=== PATIENT | male | born 1990 | race Caucasian/White ===

== ENCOUNTER 2017-02-25 18:35 | Emergency (ER) | payer MEDICAID ==
[2017-02-25 18:44] VITALS: BP 121/89; PULSE 85; RESP 15; TEMP 98.2; O2SAT 98
[2017-02-25] MEDS ORDERED: DIAZEPAM 5 MG PREPACK#4 BTL TAKEHOME ONE (19:00)
--- NOTE | 2017-02-25 19:00 | EDPHY ---
H & P Stated Complaint: " shakes and can't move " then has muscle soreness. Anxious Time Seen by Provider: 02/25/17 18:51 - Personal History Current Tetanus Diphtheria and Acellular Pertussis (TDAP): Yes Tetanus Vaccine Date: < 10 YEARS - Medical/Surgical History Hx Asthma: No Hx Chronic Respiratory Disease: No Hx Diabetes: No Hx Cardiac Disease: No Hx Renal Disease: No Hx Cirrhosis: No Hx Alcoholism: No Hx HIV/AIDS: No Hx Splenectomy or Spleen Trauma: No Other PMH: HYDROCELE HERNIA, anxiety, panic attacks - Social History Smoking Status: Light smoker Constitutional: Initial Vital Signs Temperature (C) 36.8 C 02/25/17 18:39 Heart Rate 85 02/25/17 18:39 Respiratory Rate 15 02/25/17 18:39 Blood Pressure 121/89 H 02/25/17 18:39 O2 Sat (%) 98 02/25/17 18:39 O2 Delivery Mode Room Air Allergies/Adverse Reactions: No Known Allergies Allergy (Unverified 09/29/15 08:10) Home Medications: Medication Instructions Recorded NK [No Known Home Meds] 02/25/17 Medical Decision Making ED Course/Re-evaluation: CHIEF COMPLAINT: Anxiety HISTORY OF PRESENT ILLNESS: 19-year-old male with a longstanding anxiety disorder. He has been on an off several medicines but he does not like taking medicines and therefore his anxiety continues to bother him. He starts to shake and he gets chest pain and throat pain and curls up in a ball. He came here because he does not want to do that so consequently he wants some treatment. He is getting health insurance April 07 and he has a psychiatric appointment at that time but needs some help before then. He says the only things really work from well in the past has been some Valium. REVIEW OF SYSTEMS: A 10 point review of systems was performed and is negative with the exception of the elements mentioned in the history of present illness. PHYSICAL EXAM: HR, BP, O2 Sat, RR. Temp noted General Appearance: Alert, well hydrated, appropriate, and non-toxic appearing. Head: Atraumatic without scalp tenderness or obvious injury Eyes: Pupils equal, round, reactive to light and accommodation, EOMI, no trauma , no injection. Ears: Clear bilaterally, no perforation, normal landmarks Nose: Atraumatic, no rhinorrhea, clear. Throat: There is no erythema or exudates, no lesions, normal tonsils, mucus membranes moist. Neck: Supple, 2+ carotid upstroke, nontender, no lymphadenopathy. Respiratory: No retractions, no distress, no wheezes, and no accessory muscle use. Lungs are clear to auscultation bilaterally. Cardiovascular: Regular rate and rhythm, no murmurs, rubs, or gallops. Bilateral carotid, radial, dorsalis pedis, and posterior tibial pulses intact. Good capillary refill all extremities. Gastrointestinal: Abdomen is soft, nontender, non-distended, no masses, no rebound, no guarding, no peritoneal signs. Musculoskeletal: Normal active ROM of all extremities, atraumatic. Neurological: Alert, appropriate, and interactive. The patient has normal DTRs and non-focal cranial nerves, motor, sensory, and cerebellar exam. Skin: No rashes, good turgor, no nodules on palpation. Past medical history: Anxiety disorder Past surgical history: Noncontributory Family history: Noncontributory Social history: Single, employed, does not abuse tobacco drugs alcohol DIFFERENTIAL DIAGNOSIS: Includes but is not limited to: Medicine reaction, anxiety, bipolar, depression, MEDICAL DECISION MAKING: This patient is in no distress. He has a longstanding anxiety disorder. I will give him 5 mg of Valium to take 2 to 3 times a day and get him outpatient psychiatric follow-up in the next day or 2. I have answered all his questions. Departure - Departure Disposition: Home, Routine, Self-Care Clinical Impression: Anxiety Condition: Good Instructions: Generalized Anxiety Disorder (ED) Referrals: NONE *PRIMARY CARE P,. [Primary Care Provider] - As per Instructions
== END 2017-02-25 19:24 | disposition home or self-care (01) ==
DX: F41.9 Anxiety disorder, unspecified (principal); F17.200 Nicotine dependence, unspecified, uncomplicated

== ENCOUNTER 2017-03-09 11:15 | Emergency (ER) | payer MEDICAID ==
[2017-03-09 11:21] VITALS: BP 107/72; PULSE 136; RESP 20; TEMP 98.2; O2SAT 100
--- NOTE | 2017-03-09 11:52 | EDPHY ---
H & P Time Seen by Provider: 03/09/17 11:37 HPI/ROS: CHIEF COMPLAINT: Continued anxiety HISTORY OF PRESENT ILLNESS: 27-year-old male history of anxiety disorder, has his 1st appointment with a psychiatrist on 04/09/2017 once he gets health insurance on April 07, seen the ER previously for acute anxiety reaction, given Valium which he states assist him with his symptoms. He has previously not had successful outcomes with SSRIs . Denies suicidal or homicidal ideation. Complaining of acute anxiety. PRIMARY CARE PROVIDER: REVIEW OF SYSTEMS: A ten point review of systems was performed and is negative with the exception of the items mentioned in the HPI PHYSICAL EXAM (Prior to examination, patient consented to physical exam, hands were washed and my usual and customary physical exam procedures followed) 1) GENERAL: Well-developed, well-nourished, alert and oriented. Appears anxious 2) HEAD: Normocephalic 3) HEENT: sclera anicteric 4) LUNGS: Breathing comfortably. Smoking Status: Light smoker Constitutional: Initial Vital Signs Temperature (C) 36.8 C 03/09/17 11:17 Heart Rate 136 H 03/09/17 11:17 Respiratory Rate 20 03/09/17 11:17 Blood Pressure 107/72 03/09/17 11:17 O2 Sat (%) 100 03/09/17 11:17 O2 Delivery Mode Room Air Allergies/Adverse Reactions: No Known Allergies Allergy (Verified 03/09/17 11:17) Home Medications: Medication Instructions Recorded Diazepam [Valium 5 MG (*)] 5 mg PO TID PRN #7 tab 03/09/17 MDM/Departure - [facility] ED Course/Re-evaluation: 11:49 a.m.: I reviewed the patient's medical records. Encouraged to keep his appointment on 04/09/2017 with psychiatrist however as this is subtle weeks away I have encouraged him to follow up with the [facility] as well as we discussed the potential long-term complications of chronic benzodiazepine use including but not limited to, dependency and the dangers of sudden cessation. Will give him a small prescription for Valium and recommend he go to [facility] walk-[facility] today or tomorrow (Friday). He also would like to return to work feels he is capable of performing his work functions.Care of patient under supervision of secondary supervising physician Dr Funes . - Depart Disposition: Home, Routine, Self-Care Clinical Impression: Anxiety Condition: Good Instructions: Anxiety (ED) Additional Instructions: Do not work, drive, operate machinery, climb to heights or similar activities while taking Valium Stand Alone Forms: Work Excuse Prescriptions: Diazepam [Valium 5 MG (*)] 5 mg PO TID PRN #7 tab PRN Reason: Anxiety Referrals: [facility],. [Clinic] - 1 day without fail
--- NOTE | 2017-03-09 12:40 | ASDISCHSUM ---
Discharge Information Plan Status:Home with No Needs Medically Cleared to Leave: Discharge Date:03/09/2017 12:22 PM CM D/C Disposition:Home, Routine, Self-Care ADT D/C Disposition:Home, Routine, Self-Care Projected Discharge Date:03/09/2017 12:22 PM Transportation at D/C:None or Unknown Discharge Delay Reason: Follow-Up Date:03/09/2017 12:22 PM Discharge Slot: Final Diagnosis: Placement Information Patient Contact Information Contact Name:ANDRIA Relationship: Address:[address] [address] Work Phone: City:[place] Alternate Phone: State/Zip Code:[place] [address] Email: Financial Information Financial Class: Primary Plan Desc:[employer] Primary Plan Number:[id number] Secondary Plan Desc: Secondary Plan Number: Assessment Information LACE LACE Acuity / Level of Care Answers: No. Emergency dept visits in Answers: 2 last 6 months Score: 2 Date Signed: 03/09/2017 12:39 PM Electronically Signed By:Nyla Echeverria RN Intervention Information
== END 2017-03-09 12:22 | disposition home or self-care (01) ==
DX: F41.9 Anxiety disorder, unspecified (principal); F17.200 Nicotine dependence, unspecified, uncomplicated

== ENCOUNTER 2017-04-17 18:11 | Emergency (ER) | payer MEDICAID ==
[2017-04-17 18:15] VITALS: RESP 18; O2SAT 97
[2017-04-17] MEDS ORDERED: SKIN ADHESIVE (DERMABOND) 1 EACH TP ONE (18:43)
--- NOTE | 2017-04-17 18:45 | EDPHY ---
H & P Stated Complaint: cut top of r 3rd digit at work with sheet metal around 1pm HPI/ROS: Chief complaint: Right middle finger laceration History of present illness: 27-year-old male presents to the emergency department for evaluation of a right middle finger laceration. Approximately 5 hr ago he cut his finger on a piece of sheet metal. Minimal pain. Minimal bleeding. No report of abnormal coolness or paresthesias in the finger. He is still moving it well. Unsure of his last tetanus shot. - Personal History Current Tetanus/Diphtheria Vaccine: Unsure Tetanus Vaccine Date: < 10 YEARS - Medical/Surgical History Hx Asthma: No Hx Chronic Respiratory Disease: No Hx Diabetes: No Hx Cardiac Disease: No Hx Renal Disease: No Hx Cirrhosis: No Hx Alcoholism: No Hx HIV/AIDS: No Hx Splenectomy or Spleen Trauma: No Other PMH: HYDROCELE HERNIA, anxiety, panic attacks - Social History Smoking Status: Light smoker - Physical Exam Exam: General: Alert, nontoxic Skin: 1 cm laceration that is parallel to the finger on the extensor surface. No deep structures or foreign body contamination visualized on inspection. Musculoskeletal: Patient is flexing and extending at the right middle finger in the DIPJ, PIP and MCP joint well Vascular: Capillary refill brisk in the right middle finger Neurologic: Sensation intact throughout the right middle finger Constitutional: Initial Vital Signs Temperature (C) 37 C 04/17/17 18:13 Heart Rate 76 04/17/17 18:13 Respiratory Rate 18 04/17/17 18:13 Blood Pressure 97/53 L 04/17/17 18:13 O2 Sat (%) 97 04/17/17 18:13 O2 Delivery Mode Room Air Allergies/Adverse Reactions: No Known Allergies Allergy (Verified 04/17/17 18:13) Home Medications: Medication Instructions Recorded Diazepam [Valium 5 MG (*)] 5 mg PO TID PRN #7 tab 03/09/17 Medical Decision Making Procedures: Procedure: Laceration repair. Verbal consent was obtained from the patient. The 1 cm laceration on the right middle finger was irrigated, draped and explored to its base with a gloved finger. There were no deep structures involved. No tendon injury was identified. The wound was repaired with Dermabond. The wound repair was simple. The procedure was performed by myself. ED Course/Re-evaluation: Patient seen under the supervision of my secondary supervising physician Dr. Scot Suh. Patient presents to the emergency department for a right middle finger laceration. This appears superficial. The finger is neurovascularly intact. He has good musculoskeletal control. Wound is cleaned and repaired with Dermabond. His tetanus is updated. He is to follow up with worker's compensation for recheck. Return precautions given. Differential Diagnosis: Included but not limited to laceration, deep structure injury, foreign body contamination Departure - Departure Disposition: Home, Routine, Self-Care Clinical Impression: Finger laceration Qualifiers: Encounter type: initial encounter Finger: middle finger Damage to nail status: without damage Foreign body presence: without foreign body Laterality: right Qualified Code(s): S61.212A - Laceration without foreign body of right middle finger without damage to nail, initial encounter Condition: Good Instructions: Finger Laceration (ED), Skin Adhesive Care (ED) Additional Instructions: Follow-up with worker's compensation for continued evaluation and care If symptoms worsen or new symptoms develop return to the emergency room for recheck Referrals: NONE *PRIMARY CARE P,. [Primary Care Provider] - As per Instructions [facility],. [Clinic] - As per Instructions Merissa Schmitz MD [Medical Doctor] - As per Instructions
[2017-04-17] MEDS ORDERED: TDAP ADULT 0.5 ML INJ (BOOSTRIX) IM ONE (18:52)
[2017-04-17 19:02] VITALS: BP 101/67; PULSE 67; TEMP 98.6
== END 2017-04-17 19:10 | disposition home or self-care (01) ==
PROC: 0HQFXZZ Repair Right Hand Skin, External Approach (ICD-10-PCS; principal; 2017-04-17)
DX: S61.212A Laceration without foreign body of right middle finger without damage to nail, initial encounter (principal); F17.200 Nicotine dependence, unspecified, uncomplicated; Z23 Encounter for immunization; W45.8XXA Other foreign body or object entering through skin, initial encounter

== ENCOUNTER 2017-05-11 20:28 | Emergency (ER) | payer MEDICAID ==
[2017-05-11 20:34] VITALS: BP 129/67; PULSE 84; RESP 16; TEMP 97.7; O2SAT 96
--- NOTE | 2017-05-11 20:42 | EDPHY ---
H & P Stated Complaint: N/V/D Time Seen by Provider: 05/11/17 20:42 HPI/ROS: HPI: This is a 27-year-old male who presents with Chief Complaint: N/V/D Location:GI Quality: Nausea, vomiting, diarrhea Duration: 5 days Signs and Symptoms: no fever, + nausea, n+ vomiting, no hematemesis, no blood in stool, no abdominal bloating, + diarrhea, no back pain, no urinary symptoms, no testicular/groin pain, no indigestion, no chest pain, no shortness of breath Timing: Resolved Severity: [id number] Context: Patient is generally healthy, smokes marijuana and vapes, presents with request for work note return to the [facility] tomorrow as they requesting in order for him to return to work. Patient was out for the last several days secondary to having nausea, vomiting, diarrhea. Denies any abdominal pain. Did report some abdominal cramping. Today he feels at his baseline. He is eating and drinking normally. He reports that he does not want any labs drawn IVs or imaging performed. "He just needs a work note." No PCP. Denies any history of cyclical vomiting syndrome. Child was diagnosed with RSV last week. Modifying Factors: None Comment: ROS: see HPI Constitutional: No fever, no chills, no weight loss Eyes: No blurred vision Respiratory: No shortness of breath, no cough Cardiovascular: No chest pain, no palpitations Gastrointestinal: + nausea, + vomiting, + diarrhea, no hematemesis, no blood in stool Genitourinary: No dysuria, no blood in urine Extremities: No myalgias, no edema Neurologic: No weakness, no numbness Skin: No rashes, no petechiae Hematologic: No bruising, no bleeding MEDICAL/SURGICAL/SOCIAL HISTORY: Medical history: Generally healthy. Does not take any regular medications. Surgical history: Pediatric hernia repair Social history: Employed. CONSTITUTIONAL: Extremely well-appearing, adult male, smells heavily of marijuana, awake and alert, no obvious distress HEENT: Atraumatic and normocephalic, PERRL, EOMI. Tympanic membranes clear. Oropharynx clear, no exudate and moist pink mucosa. Airway patent. No lymphadenopathy. No meningismus. Cardiovascular: Normal S1/S2, regular rate, regular rhythm, without murmur rub or gallop. PULMONARY/CHEST: Symmetrical and nontender. Clear to auscultation bilaterally. Good air movement. No accessory muscle usage. ABDOMEN: Soft, nondistended, nontender, no rebound, no guarding, no peritoneal signs, no masses or organomegaly. No CVAT. EXTREMITIES: 2/2 pulses, strength 5/5, no deformities, no clubbing, no cyanosis or edema. NEUROLOGICAL: no focal neuro deficits. GCS 15. SKIN: Warm and dry, no erythema. no rash. Good capillary refill. Source: Patient Exam Limitations: No limitations - Personal History Current Tetanus/Diphtheria Vaccine: Yes Current Tetanus Diphtheria and Acellular Pertussis (TDAP): Yes Tetanus Vaccine Date: < 10 YEARS - Medical/Surgical History Hx Asthma: No Hx Chronic Respiratory Disease: No Hx Diabetes: No Hx Cardiac Disease: No Hx Renal Disease: No Hx Cirrhosis: No Hx Alcoholism: No Hx HIV/AIDS: No Hx Splenectomy or Spleen Trauma: No Other PMH: HYDROCELE HERNIA, anxiety, panic attacks - Social History Smoking Status: Light smoker Constitutional: Initial Vital Signs Temperature (C) 36.5 C 05/11/17 20:32 Heart Rate 84 05/11/17 20:32 Respiratory Rate 16 05/11/17 20:32 Blood Pressure 129/67 H 05/11/17 20:32 O2 Sat (%) 96 05/11/17 20:32 O2 Delivery Mode Room Air Allergies/Adverse Reactions: No Known Allergies Allergy (Verified 04/17/17 18:13) Home Medications: Medication Instructions Recorded Diazepam [Valium 5 MG (*)] 5 mg PO TID PRN #7 tab 03/09/17 Ondansetron Odt [Zofran Odt 4 mg 4 mg PO Q4 PRN #12 tab 05/11/17 (*)] Medical Decision Making ED Course/Re-evaluation: Patient politely refuses any workup or imaging as his symptoms have resolved. Abdomen is soft and nontender; vital signs are stable; doubt surgical abdomen. Given a prescription for Zofran and work note. This patient was seen under the supervision of my secondary supervising physician. I evaluated care for this patient independently. Differential Diagnosis: Differential diagnosis includes gastroenteritis, cyclical vomiting syndrome, gastritis, viral syndrome. Departure - Departure Disposition: Home, Routine, Self-Care Clinical Impression: Gastroenteritis Condition: Good Instructions: Gastroenteritis (ED) Additional Instructions: Consume a minimum of 8-10 glasses of water or electrolyte fluid replacement drinks that include Gatorade, Powerade, Pedialyte. Eat a bland diet for the next 48 hours and then slowly advance as tolerated. Take Zofran 1 tab every 4 hours as needed for nausea, vomiting. Return to the Emergency Room if symptoms do not resolve in the next 48-72 hours , you spike a fever > 102 F, or experience intractable abdominal pain/nausea/ vomiting. Referrals: [facility],. [Clinic] - As per Instructions Stand Alone Forms: Work Excuse Prescriptions: Ondansetron Odt [Zofran Odt 4 mg (*)] 4 mg PO Q4 PRN #12 tab PRN Reason: Nausea/Vomiting, Use 1st
== END 2017-05-11 20:56 | disposition home or self-care (01) ==
DX: K52.9 Noninfective gastroenteritis and colitis, unspecified (principal); F17.200 Nicotine dependence, unspecified, uncomplicated